=== PATIENT | female | born 1995 | race Caucasian/White ===

== ENCOUNTER 2017-11-09 23:57 | Emergency (ER) | payer BC, OTHER ==
[2017-11-10] MEDS ORDERED: GELATIN SPONGE,ABSORB (SMALL) 1 EACH SPONGE TOPICAL STA (00:11)
[2017-11-10 00:40] VITALS: BP 121/80; PULSE 104; RESP 16
--- NOTE | 2017-11-10 00:48 | ED ---
Wound/Laceration HPI - General Chief Complaint: Wound/Laceration Stated Complaint: Finger Lac Time Seen by Provider: 11/10/17 00:04 Source: patient, RN notes reviewed Mode of arrival: ambulatory Limitations: no limitations - History of Present Illness Initial Comments: This is a 22-year-old female presents to the emergency department with chief complaint of finger laceration. 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 She states that she went to catch the glass and lacerated the distal tip of her left index finger on the glass. Patient states that she is up-to-date with her tetanus vaccination. She states that she has been unable to get the bleeding to stop. Denies fever, chills, chest pain, shortness of breath, abdominal pain, nausea or vomiting, constipation or diarrhea, dysuria or hematuria, numbness or tingling, headache or vision changes. - Related Data Home Medications Medication Instructions Recorded Confirmed Dextroamphetamine/Amphetamine 30 mg PO QAM 11/10/17 11/10/17 [Adderall Xr] buPROPion HCL [Wellbutrin SR] 150 mg PO DAILY 11/10/17 11/10/17 Allergies Allergy/AdvReac Type Severity Reaction Status Date / Time Penicillins Allergy Severe Rash/Hives Verified 11/10/17 00:02 amoxicillin Allergy Rash/Hives Verified 11/10/17 00:02 Review of Systems ROS Statement: Those systems with pertinent positive or pertinent negative responses have been documented in the HPI. ROS Other: All systems not noted in ROS Statement are negative. Past Medical History Past Medical History: No Reported History Additional Past Medical History / Comment(s): anxiety History of Any Multi-Drug Resistant Organisms: None Reported Past Surgical History: Section Past Anesthesia/Blood Transfusion Reactions: No Reported Reaction Past Psychological History: Anxiety, Depression Smoking Status: Never smoker Past Alcohol Use History: None Reported Past Drug Use History: None Reported - Past Family History Mother Family Medical History: No Reported History General Exam - General Exam Comments Initial Comments: General: Awake and alert, well-developed; in no apparent distress. HEENT: Head atraumatic, normocephalic. Pupils are equal, round and reactive to light. Extraocular movements intact. Oropharynx moist without erythema or exudate. Neck: Supple. Normal ROM. Cardiovascular: Regular rate and rhythm. No murmurs, rubs or gallops. Chest symmetrical. Respiratory: Lungs clear to auscultation bilaterally. No wheezes, rales or rhonchi. Normal respiratory effort with no use of accessory muscles. Musculoskeletal: Normal range of motion of left index finger. There is a superficial skin avulsion distal tip left index finger. Bleeding is active. Sensation is intact. Radial pulses are 2+ equal and palpable bilaterally. Skin: [place], warm and dry without rashes. Neurological: Alert and oriented x3. CN II-XII grossly intact. Speech is fluent and answers are appropriate. No focal neuro deficits. Psychiatric: Normal mood and affect. No overt signs of depression or anxiety noted. Limitations: no limitations Course Vital Signs 11/09/17 23:59 Temperature 97.3 F L Pulse Rate 120 H Respiratory 20 Rate Blood Pressure 131/96 O2 Sat by Pulse 100 Oximetry Medical Decision Making - Medical Decision Making This is a 22-year-old female presents to the emergency department with chief complaint of left index and laceration. Apparently 4 PM this evening patient sustained a superficial skin avulsion to the distal tip of her left index finger. Gelfoam was applied and dressing was placed. Patient tolerated well and she is neurovascularly intact. She is in no acute distress and will be discharged home. Recommended leaving Gelfoam on for at least 72 hours. Patient is in agreement with plan and voices understanding. All questions were answered. Disposition Clinical Impression: Avulsion of skin of finger Disposition: HOME SELF-CARE Condition: Good Instructions: Skin Avulsion (ED) Additional Instructions: Please leave Gelfoam on for at least 72 hours. Please follow up with primary care provider within 1-2 days. Return to emergency department if symptoms should worsen or any concerns arise. Referrals: Kim Dickey MD [Primary Care Provider] - 1-2 days Time of Disposition: 00:33
[2017-11-10 00:59] VITALS: TEMP 98.6
== END 2017-11-10 00:58 | disposition home or self-care (01) ==
LOC: EC 23:57
DX: S61.211A Laceration without foreign body of left index finger without damage to nail, initial encounter (principal); F32.9 Major depressive disorder, single episode, unspecified; Z79.899 Other long term (current) drug therapy; Z88.0 Allergy status to penicillin; W25.XXXA Contact with sharp glass, initial encounter; Y93.G1 Activity, food preparation and clean up
CPT/HCPCS: 99282

== ENCOUNTER 2018-11-01 10:17 | Emergency (ER) | payer OTHER ==
[2018-11-01 10:26] VITALS: RESP 18; TEMP 98.3
--- NOTE | 2018-11-01 11:08 | ED ---
General Adult HPI - General Chief complaint: ENT Stated complaint: Poss Strep Throat Time Seen by Provider: 11/01/18 10:36 Source: patient, RN notes reviewed Mode of arrival: ambulatory Limitations: no limitations - History of Present Illness Initial comments: 23-year-old female presents to the emergency department for a chief complaint of sore throat 1.5 weeks. Patient does not have any fevers that she is aware of. Patient has had congestion and ear pain as well. Patient has had a mild cough. She is not coughing anything up. She denies any chest pain or shortness of breath. No history of asthma. Patient states she would have wanted med [facility] but they did not take her insurance. Patient has no other complaints at this time including shortness of breath, chest pain, abdominal pain, nausea or vomiting, headache, or visual changes. - Related Data Home Medications Medication Instructions Recorded Confirmed Dextroamphetamine/Amphetamine 30 mg PO QAM 11/10/17 11/10/17 [Adderall Xr] buPROPion HCL [Wellbutrin SR] 150 mg PO DAILY 11/10/17 11/10/17 Previous Rx's Medication Instructions Recorded Cephalexin [Keflex] 500 mg PO Q12HR #20 cap 11/01/18 Fluticasone Propionate [Flonase 1 spray EA NOSTRIL DAILY PRN #9.9 11/01/18 Allergy Relief] ml Allergies Allergy/AdvReac Type Severity Reaction Status Date / Time Penicillins Allergy Severe Rash/Hives Verified 11/01/18 10:26 amoxicillin Allergy Rash/Hives Verified 11/01/18 10:26 Review of Systems ROS Statement: Those systems with pertinent positive or pertinent negative responses have been documented in the HPI. ROS Other: All systems not noted in ROS Statement are negative. Past Medical History Past Medical History: No Reported History Additional Past Medical History / Comment(s): anxiety History of Any Multi-Drug Resistant Organisms: None Reported Past Surgical History: Section Past Anesthesia/Blood Transfusion Reactions: No Reported Reaction Past Psychological History: Anxiety, Depression Smoking Status: Never smoker Past Alcohol Use History: None Reported Past Drug Use History: None Reported - Past Family History Mother Family Medical History: No Reported History General Exam Limitations: no limitations General appearance: alert, in no apparent distress Head exam: Present: atraumatic, normocephalic, normal inspection Eye exam: Present: normal appearance, PERRL, EOMI. Absent: scleral icterus, conjunctival injection, periorbital swelling ENT exam: Present: normal exam, normal oropharynx (uvula midline, no tonsillar exudates noted bilaterally.), mucous membranes moist, TM's normal bilaterally, normal external ear exam Neck exam: Present: normal inspection, full ROM. Absent: tenderness, meningismus, lymphadenopathy Respiratory exam: Present: normal lung sounds bilaterally. Absent: respiratory distress, wheezes, rales, rhonchi, stridor Cardiovascular Exam: Present: regular rate, normal rhythm, normal heart sounds. Absent: systolic murmur, diastolic murmur, rubs, gallop, clicks Neurological exam: Present: alert, oriented X3, CN II-XII intact Psychiatric exam: Present: normal affect, normal mood Course Vital Signs 11/01/18 10:24 Temperature 98.3 F Pulse Rate 108 H Respiratory 18 Rate Blood Pressure 134/85 O2 Sat by Pulse 100 Oximetry Medical Decision Making - Medical Decision Making Strep, influenza, chest x-ray negative. However is patient has had a sore throat for a week and a half and could have another strain of strep we will treat her. She is ALLERGIC to amoxicillin so will be treated with Keflex. Also given nasal spray for congestion. Will follow up with primary care and return here if she has any worsening symptoms. - Lab Data Lab Results 11/01/18 11/01/18 Range/Units 11:06 11:06 Influenza Type A RNA Not Detected (Not Detectd) Influenza Type B (PCR) Not Detected (Not Detectd) Group A Strep Rapid Negative (Negative) Disposition Clinical Impression: Pharyngitis Disposition: HOME SELF-CARE Condition: Good Instructions (If sedation given, give patient instructions): Pharyngitis (ED) Additional Instructions: Please take antibiotic as directed. Please take nasal spray as directed. Please follow-up with primary care in 1-2 days. Return here for any worsening symptoms. Prescriptions: Cephalexin [Keflex] 500 mg PO Q12HR #20 cap Fluticasone Propionate [Flonase Allergy Relief] 1 spray EA NOSTRIL DAILY PRN # 9.9 ml PRN Reason: Congestion Is patient prescribed a controlled substance at d/c from ED?: No Referrals: Kim Dickey MD [Primary Care Provider] - 1-2 days Time of Disposition: 12:58
--- NOTE | 2018-11-01 12:02 | XR ---
EXAMINATION TYPE: XR chest 2V DATE OF EXAM: 11/01/2018 COMPARISON: NONE HISTORY: Sore throat, pain TECHNIQUE: Frontal and lateral views of the chest are obtained. FINDINGS: There is no focal air space opacity, pleural effusion, or pneumothorax seen. Accessory azy gous fissure is incidentally noted in the right upper lung. The cardiac silhouette size is within nor mal limits. The osseous structures are intact. IMPRESSION: No acute cardiopulmonary process.
[2018-11-01 13:11] VITALS: BP 134/92; PULSE 109
== END 2018-11-01 13:11 | disposition home or self-care (01) ==
LOC: EC 10:17
DX: J02.9 Acute pharyngitis, unspecified (principal); F32.9 Major depressive disorder, single episode, unspecified; Z79.899 Other long term (current) drug therapy; Z88.0 Allergy status to penicillin
CPT/HCPCS: 71046; 87081; 87430; 87502; 99283

== ENCOUNTER → 2021-03-16 | Outpatient (CLI) | payer OTHER | END | disposition home or self-care (01) | DX: M54.5 Low back pain (principal) ==